=== PATIENT | male | born 1995 | race Caucasian/White ===

== ENCOUNTER 2021-09-23 16:53 | Emergency (ER) | payer SELFPAY ==
[~2021-09-23] VITALS: Ht 182.9 cm; Wt 81.6 kg
[2021-09-23 17:08] VITALS: BP 113/75
[2021-09-23] MEDS ORDERED: LIDOCAINE HCL/MPF 1% 30 ML VIAL IJ ONE (17:50)
[2021-09-23] MEDS ORDERED: LIDOCAINE HCL/PF 1% 30 ML VIAL TP ONE (18:00)
== END 2021-09-23 18:37 | disposition home or self-care (01) ==
LOC: ER 16:57
DX: S01.511A Laceration without foreign body of lip, initial encounter (principal); Z60.2 Problems related to living alone; W22.8XXA Striking against or struck by other objects, initial encounter; Y93.89 Activity, other specified; Y92.89 Other specified places as the place of occurrence of the external cause; Y99.8 Other external cause status
CPT/HCPCS: 12011; 99282; A6403 ×2; J3490 ×2